=== PATIENT | male | born 1965 | race Caucasian/White ===

== ENCOUNTER 2018-12-21 00:30 | Emergency (ER) | payer OTHER ==
[2018-12-21] MEDS ORDERED: KETOROLAC TROMETHAMINE INJ 30 MG/ML VIAL IM ONE (00:44)
[2018-12-21] MEDS ORDERED: predniSONE 20 MG TAB PO ONE (00:45)
--- NOTE | 2018-12-21 01:01 | ED.PDOC ---
History of Present Illness - General Chief Complaint: Upper Extremity Injury Stated Complaint: rt shoulder pain Time Seen by Provider: 12/21/18 00:42 - History of Present Illness Initial Comments: this a 53 year old patient smoker, with no know medical problem ,patient presents with a 2 week hx of right shoulder pain, patient stated that he had surgery on the same shoulder several years ago and he think that he may have re injured his shoulder at work patient works operating heavy machinery patient denies fever or any other constitutional symptoms Home Medications: Ambulatory Orders Acetaminophen W/ Codeine [Tylenol W/ CODEINE #3] 1 ea PO QID #20 12/21/18 Methylprednisolone [Medrol Dose Lawrence] 4 mg PO DAILY 6 Days #21 tab 12/21/18 Review of Systems - Review of Systems Constitutional: States: no symptoms reported. Denies: chills, diaphoresis, fever, malaise, weakness EENTM: States: no symptoms reported. Denies: see HPI, eye pain, blurred vision, tearing, double vision, ear pain, ear discharge, nose pain, nose congestion, throat pain, throat swelling, mouth pain, mouth swelling Respiratory: States: no symptoms reported. Denies: cough, orthopnea, short of breath, stridor, wheezing Cardiology: States: no symptoms reported. Denies: chest pain, edema, palpitations, syncope Gastrointestinal/Abdominal: States: no symptoms reported. Denies: abdominal pain, constipation, diarrhea, nausea, vomiting Genitourinary: Denies: discharge, dysuria, frequency, hematuria, pain Musculoskeletal: States: no symptoms reported, joint pain. Denies: back pain, gout, joint swelling, muscle pain, muscle stiffness, neck pain Skin: States: no symptoms reported. Denies: change in color, change in hair/nails, dryness, lesions, lumps, rash, other Neurological: States: no symptoms reported. Denies: anxiety, depressed, emotional problems, headache, numbness, paresthesia, pre-existing deficit, seizure, tingling, tremors, weakness Endocrine: States: no symptoms reported. Denies: excessive sweating, flushing, intolerance to cold, intolerance to heat, increased hunger, increased thirst, increased urine, unexplained weight gain, unexplained weight loss Hematologic/Lymphatic: States: no symptoms reported. Denies: anemia, blood clots, easy bleeding, easy bruising Past Medical History (General) - Patient Medical History Hx Seizures: No Hx Asthma: No Hx Cardiac Disorders: No Hx Hypertension: No Hx Diabetes: No Surgical History: other - Vaccination History Hx Tetanus, Diphtheria Vaccination: Yes - 2016 Hx Influenza Vaccination: No Hx Pneumococcal Vaccination: No Immunizations Up to Date: No - Social History Hx Tobacco Use: Yes Hx Alcohol Use: Yes Family Medical History - Family History Father Family History: Unknown Physical Exam - Physical Exam General Appearance: Alert, Well Developed, Well Groomed Neck: non-tender, full range of motion, supple, normal inspection Respiratory: chest non-tender, lungs clear, normal breath sounds, no respiratory distress, no accessory muscle use Cardiovascular/Chest: normal peripheral pulses, regular rate, rhythm, no edema, no gallop Peripheral Pulses: radial,right: 2+, radial,left: 2+ Gastrointestinal/Abdominal: normal bowel sounds, non tender, soft, no organ omegaly, no pulsatile mass Extremity: other - no redness no swelling mild decrase range of motion due to pain Neurologic: alert, normal mood/affect, oriented x 3 Progress - Progress Progress: 12/21/18 01:03 this is a patient with a 2 week hx of right shoulder pain, patient has had surgery on this shoulder, we discussed ordering and x rays but eventually patient will need an mri and follow up with orthopedic surgery, i doubt septic joint 12/21/18 01:15 on x rays i didnt see any fractures or dislocations, patient will be discharge home with tylenol 3 and steroids, arm sling and follow up with ortho, no evidence of septic joint on physical exam Departure - Departure Clinical Impression: Shoulder sprain Qualifiers: Encounter type: initial encounter Shoulder sprain type: unspecified sprain Laterality: right Qualified Code(s): S43.401A - Unspecified sprain of right shoulder joint, initial encounter Disposition: Discharge to Home or Self Care Condition: Fair Departure Forms: ED Discharge - Pt. Copy, Patient Portal Self Enrollment Instructions: DI for Arm Pain, Shoulder Sprain Prescriptions: Acetaminophen W/ Codeine [Tylenol W/ CODEINE #3] 1 ea PO QID #20 Methylprednisolone [Medrol Dose Lawrence] 4 mg PO DAILY 6 Days #21 tab Home Medications: Ambulatory Orders Acetaminophen W/ Codeine [Tylenol W/ CODEINE #3] 1 ea PO QID #20 09/21/19 Methylprednisolone [Medrol Dose Lawrence] 4 mg PO DAILY 6 Days #21 tab 12/21/18 Additional Instructions: follow up with ortho for shoulder MRI
--- NOTE | 2018-12-21 01:29 | RAD ---
EXAM DESCRIPTION: XR Shoulder, Right 2 or More Views CLINICAL HISTORY: 53 years Male shoulder pain TECHNIQUE: Two views of the right shoulder are provided. COMPARISON: No prior exams provided for comparison. FINDINGS: There is no acute fracture or no evidence of dislocation. No aggressive osseous lesion. 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 Visualized portions of the right lung are clear. IMPRESSION: No acute findings in the right shoulder. Electronically signed by: Eileen Bauer MD 12/21/2018 1:27 AM CDT
[2018-12-21] MEDS ORDERED: methylPREDNISolone TAB 4 MG TAB ONE (01:46)
[2018-12-21 01:55] VITALS: BP 111/88; TEMP 97.6; O2SAT 93
[2018-12-21] MEDS ORDERED: methylPREDNISolone TAB 4 MG TAB PO SCH (09:00)
== END 2018-12-21 01:55 | disposition home or self-care (01) ==
LOC: ER 00:30
DX: S43.401A Unspecified sprain of right shoulder joint, initial encounter (principal); F17.200 Nicotine dependence, unspecified, uncomplicated; Z98.890 Other specified postprocedural states; X58.XXXA Exposure to other specified factors, initial encounter; Y99.0 Civilian activity done for income or pay; Y92.69 Other specified industrial and construction area as the place of occurrence of the external cause
CPT/HCPCS: 73030; J1885; J7509; J7512